=== PATIENT | male | born 1990 | race Caucasian/White ===

== ENCOUNTER 2020-11-22 12:49 | Emergency (ER) | payer OTHER ==
[2020-11-22 12:59] VITALS: BP 119/52; PULSE 95; TEMP 98.2; BMI 27.6
[2020-11-22] MEDS ORDERED: IBUPROFEN 400 MG TABLET (FP) PO ONE ×2 (13:21→13:29)
== END 2020-11-22 13:42 | disposition home or self-care (01) ==
LOC: JERFT 12:49
DX: S89.91XA Unspecified injury of right lower leg, initial encounter (principal)
CPT/HCPCS: 99284-25

== ENCOUNTER 2021-09-15 13:33 | Emergency (ER) | payer OTHER ==
[2021-09-15 13:37] VITALS: BP 96/46; PULSE 79; TEMP 97.6; BMI 26.3
== END 2021-09-15 17:27 | disposition home or self-care (01) ==
LOC: JERFT 13:33
DX: M54.50 Low back pain, unspecified (principal)
CPT/HCPCS: 72050-TC-FY; 72110-TC-FY; 73030-TC-RT-FY; 99285-25